=== PATIENT | male | born 1960 | race Caucasian/White ===

== ENCOUNTER 2021-06-05 20:46 | Emergency (ER) | payer MEDICAID, SELFPAY ==
[2021-06-05 21:10] VITALS: BP 129/68; PULSE 71; RESP 18; TEMP 37.2; O2SAT 99; BMI 33.0
--- NOTE | 2021-06-05 21:49 | HMH.EDUTC ---
[facility] [place] Disposition Clinical Impression: Viral syndrome, Encounter for laboratory testing for COVID-19 virus Disposition: Home, Self-Care Condition on Discharge: Good Instructions: DI for COVID-19 (Suspected or Confirmed ), Coronavirus Disease 2019, Preventing the Spread of Coronavirus Discharge Instructions Additional Instructions: *Monitor Temp, Over the counter Motrin or Tylenol as directed/as needed Tylenol every 4 hours and Motrin every 6 hours (as long as your family doctor has told you that you can take it) for fever or pain. and straight to ER if unable to lower temp less than 101.0 after medication given *Warm salt water gargles may help to soothe the throat *Throat Lozenges *Warm fluids like tea with honey may help to soothe the throat *Sleep elevated *Humidifier/Vaporizer Follow up IMMEDIATELY for new or worsening symptoms or no Noticeable improvement over the next 48-72 hours. 911 for difficulty breathing or swallowing You were tested for today for COVID19 your test result should be back in the next 24-48 hours, you may call to the [facility] to see if your test results are back in the next 48 hours [phone] [facility] hours are 9am-9pm You was given a handout with instructions for Self Quarantine and Self isolation for while you wait on test results and what to do if they are positive If you are positive the Health Dept will be contacting you also Make sure to take your Vitamins Vit. C Vit D and Zinc if you can take them Prescriptions: Benzonatate [Tessalon Perle 100mg Cap*] 100 mg PO TID PRN #15 cap PRN Reason: Cough Transmission Status: Pending to [facility] Ondansetron [Zofran 4mg ODT] 4 mg PO TIDP PRN #6 tab PRN Reason: Nausea Transmission Status: Pending to [facility] Referrals: Chyna Figueredo APRN [Primary Care Provider] - As needed Time of Disposition: 22:01 Medical Decision Making - Karan Inquiry Pt receiving controlled substance: No Karan was queried for this patient: No Vital Signs: 06/05/21 21:10 Temperature 99.0 F Temperature Source Oral Pulse Rate [Right Brachial] 71 Respiratory Rate 18 Blood Pressure [Right Arm] 129/68 Blood Pressure Mean [Right Arm] 88 Blood Pressure Source [Right Arm] Automatic Cuff Blood Pressure Position [Right Arm] Sitting 02 Sat by Pulse Oximetry 99 Oxygen Delivery Method Room Air Orders (Tests/Meds): ORDERS Category Date Time Status Covid-19 Nasal PCR ([facility]) Routine Lab 06/05/21 21:30 Received [facility] [place] HPI - General Stated complaint: stomach pain Time Seen by Provider: 06/05/21 21:52 Mode of Arrival: Ambulatory Source of Information: Patient Limitations: No Limitations Description of Symptoms (Recalled from Triage Doc. by RN): COVID TEST D/T EXPOSURE ON MONDAY. C/O FEVER, COUGH, AND NAUSEA X 2 DAYS HEENT Symptoms (Recalled from RN notes): No Resp Symptoms (Recalled from RN notes): No Skin Symptoms (Recalled from RN notes): No MS Symptoms (Recalled from RN notes): No Functional Status (Recalled from RN notes): WNL - History of Present Illness Provider Complaint: Patient states that he was around his sister and she tested positive for COVID on Monday State that he was having upset stomach earlier having low grade fever all day feeling tired with a little cough so he wanted to come in and get checked for COVID - Related Data Previous Rx's Medication Instructions Recorded levoFLOXacin [Levaquin 750mg 750 mg PO DAILY #5 tab 02/28/19 tablet] Benzonatate [Tessalon Perle 100mg 100 mg PO TID PRN #15 cap 06/05/21 Cap*] Ondansetron [Zofran 4mg ODT] 4 mg PO TIDP PRN #6 tab 06/05/21 Allergies Allergy/AdvReac Type Severity Reaction Status Date / Time Penicillins Allergy Verified 02/25/19 09:32 - Worker's Comp Is this a Worker's Comp case?: No [facility] History - Hepatitis A Screen Drug use history?: No High risk sexual behaviors?: No History of sexually transmitted infection?: No Currently emplo
[2021-06-05 21:52] VITALS: BP 129/68; PULSE 71; RESP 18; TEMP 37.2; O2SAT 99
--- NOTE | 2021-06-06 13:59 | PC.NURSE ---
PT NOTIFIED OF POSITIVE COVID TEST RESULTS
== END 2021-06-05 22:07 | disposition home or self-care (01) ==
PROVIDERS: Emergency Provider Nurse Practitioner; PCP Nurse Practitioner Family
DX: B34.9 Viral infection, unspecified (principal); Z20.822 Contact with and (suspected) exposure to COVID-19
CPT/HCPCS: 99202; G0463; U0003

== ENCOUNTER → 2023-07-17 23:40 | Outpatient (CLI) | payer MEDICAID, SELFPAY ==
[2023-07-17 16:58] LABS: Basophils % 0.3 % (0.1-2.0); Eosinophils # 0.2 K/mm3 (0.0-0.4); Eosinophils % 2.3 % (0.1-12.0); Hematocrit 44.2 % (42.0-52.0); Hemoglobin 14.6 g/dL (14.1-18.0); Lymphocytes # 1.4 K/mm3 (0.7-4.5); Lymphocytes % 13.7 % (10-50); Mean Corpuscular Hemoglobin 30.1 pg (27.0-31.2); Mean Corpuscular Volume 91.1 fl (80-94); Mean Platelet Volume 9.8 fl (7.4-10.4); Monocytes # 0.8 K/mm3 (0.1-1.0); Neutrophils # 7.6 K/mm3 (1.8-7.8); Neutrophils % 75.8 % (37.0-80.0); Platelet Count 210 K/mm3 (142-424); Red Blood Count 4.86 M/mm3 (4.60-6.20); Red Cell Distribution Width 13.8 % (11.5-17.5); White Blood Count 10.1 K/mm3 (4.8-10.8)
[2023-07-17 17:10] LABS: Alanine Aminotransferase 23 U/L (12-78); Albumin Level 4.3 g/dl (3.5-5.0); Albumin/Globulin Ratio 1.4 (1.1-1.8); Alkaline Phosphatase 61 U/L (38-126); Anion Gap 12.6 mEq/L (5-15); Aspartate Amino Transferase 27 U/L (17-59); Bilirubin,Total 1.6 mg/dl (0.2-1.3); Blood Urea Nitrogen 14 mg/dl (9-20); Calcium 9.1 mg/dl (8.4-10.2); Carbon Dioxide 31 mmol/L (22.0-30.0); Chloride 100 mmol/L (98-107); Chol/HDL Ratio 5.1 (1-3.5); Cholesterol 149 mg/dl (140-200); Estimated Glomerular Filt Rate 47 ml/min (>60); GFR (African American) 57 ML/MIN (>60); Glucose 122 mg/dl (74-100); HDL Cholesterol 29 mg/dl (40-60); Potassium 4.6 mmoL/L (3.5-5.1); Sodium 139 mmol/L (136-145); Total Protein,Serum 7.3 g/dl (6.3-8.2); Triglycerides 150 mg/dl (30-150); VLDL Cholesterol 30 mg/dL (0-40)
[2023-07-17 17:20] LABS: Direct LDL Cholesterol 84.97 mg/dL (100-129)
[2023-07-17 17:42] LABS: Thyroid Stimulating Hormone 1.84 uIU/mL (0.465-4.68)
== END ==
PROVIDERS: PCP Nurse Practitioner Family; Visit Provider Nurse Practitioner Family
DX: E11.9 Type 2 diabetes mellitus without complications (principal); I10 Essential (primary) hypertension; E78.5 Hyperlipidemia, unspecified; Z79.4 Long term (current) use of insulin; Z87.891 Personal history of nicotine dependence
CPT/HCPCS: 80053; 80061; 83036; 84443; 85025

== ENCOUNTER 2023-07-18 16:58 | Emergency (ER) | payer MEDICAID, SELFPAY ==
[2023-07-18 17:00] VITALS: BP 135/45; PULSE 75; RESP 20; TEMP 36.7; O2SAT 96; BMI 18.8
--- NOTE | 2023-07-18 17:30 | HMH.EDGENADL ---
Discharge Plan Disposition Chief Complaint: Eye Problems Prescriptions Prescriptions: No Action ondansetron 4 mg tablet,disintegrating 4 mg PO Q8H PRN (Reason: nausea and vomiting) Qty: 20 0RF (DME) FreeStyle Lite Strips Strip See Rx Instructions .ROUTE .MEDSUPPLY Qty: 10 Rx Instructions: As directed triamcinolone acetonide 0.1 % lotion 1 applic topical BID Qty: 60 3RF mometasone 0.1 % cream 1 applic topical DAILY Qty: 45 1RF lisinopril 40 mg tablet 40 mg PO DAILY Qty: 60 3RF pravastatin 80 mg tablet See Rx Instructions .ROUTE .COMPLEX Qty: 90 1RF Dose Instruction: TAKE 1 TABLET 1 TIME EACH DAY Rx Instructions: TAKE 1 TABLET 1 TIME EACH DAY (DME) lancets [FreeStyle Lancets] 28 gauge misc See Rx Instructions .ROUTE .COMPLEX Qty: 100 2RF Dose Instruction: USE TO TEST BLOOD SUGAR 2 TIMES EACH DAY Rx Instructions: USE TO TEST BLOOD SUGAR 2 TIMES EACH DAY spironolactone 25 mg tablet See Rx Instructions .ROUTE .COMPLEX Qty: 90 0RF Dose Instruction: TAKE 1 TABLET 1 TIME EACH DAY FOR HYPERTENSION Rx Instructions: TAKE 1 TABLET 1 TIME EACH DAY FOR HYPERTENSION alcohol swabs [BD Alcohol Swabs] Pads, Medicated See Rx Instructions .ROUTE .COMPLEX Qty: 100 2RF Dose Instruction: USE TO CHECK BLOOD SUGAR 2 TIMES EACH DAY Rx Instructions: USE TO CHECK BLOOD SUGAR 2 TIMES EACH DAY (DME) pen needle, diabetic [BD Ultra-Fine Mini Pen Needle] 31 gauge x 3/16 needle See Rx Instructions .ROUTE .COMPLEX Qty: 50 2RF Dose Instruction: USE DIRECTED TO INJECT INSULIN Rx Instructions: USE DIRECTED TO INJECT INSULIN insulin glargine 100 unit/mL (3 mL) insulin pen See Rx Instructions .ROUTE .COMPLEX Qty: 15 2RF Dose Instruction: INJECT 50 UNITS UNDER THE SKIN 2 TIMES EACH DAY FOR DIABETES Rx Instructions: INJECT 50 UNITS UNDER THE SKIN 2 TIMES EACH DAY FOR DIABETES metoprolol tartrate 50 mg tablet See Rx Instructions .ROUTE .COMPLEX Qty: 120 2RF Dose Instruction: TAKE 2 TABLETS 2 TIMES EACH DAY Rx Instructions: TAKE 2 TABLETS 2 TIMES EACH DAY ergocalciferol (vitamin D2) [Vitamin D2] 1,250 mcg (50,000 unit) capsule See Rx Instructions .ROUTE .COMPLEX Qty: 4 5RF Dose Instruction: TAKE 1 CAPSULE 1 TIME EACH WEEK Rx Instructions: TAKE 1 CAPSULE 1 TIME EACH WEEK Referrals Follow up/Referrals: Aixa Delarosa APRN [Primary Care Provider] - See instructions Discharge ED Provider: Curt Panchal General Adult HPI General Chief complaint: Eye Problems Stated complaint: nausea, dizzy, blurred vision Time Seen by Provider: 07/18/23 17:08 History of Present Illness HPI narrative: The patient presents with a chief complaint of numbness and tingling in the arm, which began today. The patient reports having an upset stomach since Monday, but denies any abdominal pain, fever, cough, shortness of breath, vomiting, diarrhea, or constipation. The patient has not experienced these symptoms before and is unsure if they have been in contact with anyone who has been sick with similar symptoms. The patient is right-handed and describes the numbness and tingling as being more prominent in the hand and running up the arm. There is no associated pain in the shoulder, arm, or neck, and no chest pain. The patient has a medical history of hypertension, hyperlipidemia, and diabetes mellitus. They deny any history of abdominal surgeries or pain upon palpation of the abdomen. In addition to the arm and stomach symptoms, the patient reports experiencing blurred vision in both eyes since Monday, coinciding with the onset of their stomach illness. The patient denies any double vision. Related Data Home Medications Medication Instructions Recorded Confirmed blood sugar diagnostic (Freeyle #10 ea 06/10/22 07/17/23 Lite Strips) Previous Rx's Medication Instructions R
--- NOTE | 2023-07-18 17:37 | XR_ITS ---
PROCEDURE INFORMATION: Exam: XR Chest Exam date and time: 07/18/2023 6:01 PM Age: 63 years old Clinical indication: Patient HX: Epigastric pain and left arm tingling; Additional info: Chest pain TECHNIQUE: Imaging protocol: Radiologic exam of the chest. Views: 1 view. COMPARISON: CR CXR2V XR chest 2V 02/28/2019 9:15 AM FINDINGS: Lungs: Normal. Pleural spaces: Normal No pleural effusion. No pneumothorax. Heart/Mediastinum: Normal. No cardiomegaly. Vasculature: Mild atherosclerotic plaque in the aortic arch. Bones/joints: Mild degenerative changes of the bilateral acromioclavicular and glenohumeral joints and thoracic spine. IMPRESSION: No acute findings.
--- NOTE | 2023-07-18 18:15 | CT_ITS ---
PROCEDURE INFORMATION: Exam: CTA Head With Contrast, Arteriography Exam date and time: 07/18/2023 6:37 PM Age: 63 years old Clinical indication: Dizziness and giddiness; Additional info: Transient dizziness, vision issues, lue numbness TECHNIQUE: Imaging protocol: Computed tomographic angiography of the head with contrast. Exam focused on the arteries. 3D rendering (Not supervised by radiologist): MIP and/or 3D reconstructed images were created by the technologist. Radiation optimization: All CT scans at this facility use at least one of these dose optimization techniques: automated exposure control; mA and/or kV adjustment per patient size (includes targeted exams where dose is matched to clinical indication); or iterative reconstruction. Contrast material: ISVOUE 370; Contrast volume: 100 ml; Contrast route: INTRAVENOUS (IV); REPORTING DATA: Count of CT and Cardiac NM exams in prior 12 months: This patient has received 0 known CTs and 0 known cardiac nuclear medicine studies in the 12 months prior to the current study. COMPARISON: No relevant prior studies available. FINDINGS: ANTERIOR CIRCULATION: Right internal carotid artery: There is occlusion of the distal intracranial segment with retrograde filling of the cavernous portion from the [id number]. No aneurysm. Right middle cerebral artery: No occlusion or significant stenosis. No aneurysm. Right anterior cerebral artery: No occlusion or significant stenosis. No aneurysm. Left internal carotid artery: Intracranial segment is patent with no significant stenosis. No aneurysm. Left middle cerebral artery: No occlusion or significant stenosis. No aneurysm. Left anterior cerebral artery: No occlusion or significant stenosis. No aneurysm. POSTERIOR CIRCULATION: Right vertebral artery: No occlusion or significant stenosis. No aneurysm. Left vertebral artery: No occlusion or significant stenosis. No aneurysm. Basilar artery: No occlusion or significant stenosis. No aneurysm. Right posterior cerebral artery: No occlusion or significant stenosis. No aneurysm. Left posterior cerebral artery: No occlusion or significant stenosis. No aneurysm. Brain: Edema secondary to an acute infarct in the right anterior and posterior temporal lobe extending into the inferior parietal lobe. There is regional mass effect with effacement of the sulci. No midline shift. No hemorrhage. Cerebral ventricles: No ventriculomegaly. Bones/joints: Unremarkable. No acute fracture. Soft tissues: Unremarkable. IMPRESSION: 1. 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 There is minimal retrograde flow of contrast from the [id number] into the cavernous portion of the right internal carotid artery. 2. Acute infarct in the right MCA distribution without evidence of focal occlusion of the MCA. THIS REPORT CONTAINS FINDINGS THAT MAY BE CRITICAL TO PATIENT CARE. The findings were verbally communicated via telephone conference with Curt Panchal at 7:16 PM EDT on 07/18/2023. The findings were acknowledged and understood.
--- NOTE | 2023-07-18 18:16 | CT_ITS ---
PROCEDURE INFORMATION: Exam: CTA Neck With Contrast Exam date and time: 07/18/2023 6:37 PM Age: 63 years old Clinical indication: Dizziness and giddiness; Additional info: Transient dizziness, vision issues, lue numbness TECHNIQUE: Imaging protocol: Computed tomographic angiography of the neck with contrast. 3D rendering (Not supervised by radiologist): MIP and/or 3D reconstructed images were created by the technologist. Radiation optimization: All CT scans at this facility use at least one of these dose optimization techniques: automated exposure control; mA and/or kV adjustment per patient size (includes targeted exams where dose is matched to clinical indication); or iterative reconstruction. Contrast material: ISOVUE 370; Contrast volume: 100 ml; Contrast route: INTRAVENOUS (IV); REPORTING DATA: Count of CT and Cardiac NM exams in prior 12 months: This patient has received 0 known CTs and 0 known cardiac nuclear medicine studies in the 12 months prior to the current study. COMPARISON: CR XR CHEST PORTABLE 07/18/2023 6:01 PM FINDINGS: Right common carotid artery: No stenosis. No dissection or occlusion. Right internal carotid artery: Large focus of densely calcified plaque in the carotid bulb is causing near occlusion. A string of contrast is seen beyond the plaque with eventual complete occlusion of the artery 5.0 cm distal to the plaque with the occlusion extending to the intracranial portion. Minimal retrograde filling of the cavernous carotid is present. Right external carotid artery: No occlusion or stenosis of the origin. Left common carotid artery: No stenosis. No dissection or occlusion. Left internal carotid artery: No stenosis of the extracranial segment. No dissection or occlusion. Left external carotid artery: No occlusion or stenosis of the origin. Right vertebral artery: No stenosis. No dissection or occlusion. Left vertebral artery: No stenosis. No dissection or occlusion. Congenitally small left vertebral artery originates directly from the aortic arch and terminates as a posteroinferior cerebellar artery. Soft tissues: Normal. No significant soft tissue swelling. Bones/joints: No acute fracture. Moderate degenerative changes of the cervical spine. 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 IMPRESSION: Large dense calcified plaque in the right carotid bulb is causing severe stenosis. 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 This occlusion extends to the intracranial portion. There is mild retrograde filling of the cavernous right internal carotid artery from the [id number]. THIS REPORT CONTAINS FINDINGS THAT MAY BE CRITICAL TO PATIENT CARE. The findings were verbally communicated via telephone conference with Curt Panchal at 7:10 PM EDT on 07/18/2023. The findings were acknowledged and understood. REFERENCES: NASCET CRITERIA. The degree of stenosis in the cervical segment of the internal carotid artery is based on NASCET criteria. Normal is no stenosis. Mild is less than 50% stenosis. Moderate is 50-69% stenosis. Severe is 70% to 99% stenosis. Total occlusion is no detectable patent lumen.
--- NOTE | 2023-07-18 18:16 | CT_ITS ---
PROCEDURE INFORMATION: Exam: CT Head Without Contrast Exam date and time: 07/18/2023 6:37 PM Age: 63 years old Clinical indication: Dizziness; Additional info: Transient dizziness, vision issues, lue numbness TECHNIQUE: Imaging protocol: Computed tomography of the head without contrast. Radiation optimization: All CT scans at this facility use at least one of these dose optimization techniques: automated exposure control; mA and/or kV adjustment per patient size (includes targeted exams where dose is matched to clinical indication); or iterative reconstruction. REPORTING DATA: Count of CT and Cardiac NM exams in prior 12 months: This patient has received 0 known CTs and 0 known cardiac nuclear medicine studies in the 12 months prior to the current study. COMPARISON: No relevant prior studies available. FINDINGS: Brain: Anterior and posterior right temporal lobe edema extending into the inferior parietal lobe with mild regional mass effect. No midline shift. No hemorrhage. Cerebral ventricles: No ventriculomegaly. Paranasal sinuses: Visualized sinuses are unremarkable. No fluid levels. Mastoid air cells: Visualized mastoid air cells are well aerated. Bones/joints: Unremarkable. No acute fracture. Soft tissues: Unremarkable. IMPRESSION: Acute right MCA distribution infarct involving the anterior and posterior right temporal lobe and inferior right parietal lobe. No hemorrhage. No midline shift. Mild regional mass effect with effacement of the sulci. ASPECTS score 7. THIS REPORT CONTAINS FINDINGS THAT MAY BE CRITICAL TO PATIENT CARE. The findings were verbally communicated via telephone conference with Curt Panchal at 7:01 PM EDT on 07/18/2023. The findings were acknowledged and understood.
[2023-07-18 18:41] LABS: Basophils % 0.2 % (0.1-2.0); Eosinophils # 0.2 K/mm3 (0.0-0.4); Eosinophils % 1.8 % (0.1-12.0); Hematocrit 46.1 % (42.0-52.0); Hemoglobin 14.9 g/dL (14.1-18.0); Lymphocytes # 1.6 K/mm3 (0.7-4.5); Lymphocytes % 16.9 % (10-50); Mean Corpuscular HGB Conc 32.4 g/dL (31.8-35.4); Mean Corpuscular Hemoglobin 29.9 pg (27.0-31.2); Mean Corpuscular Volume 92.2 fl (80-94); Mean Platelet Volume 9.2 fl (7.4-10.4); Monocytes # 0.8 K/mm3 (0.1-1.0); Monocytes % 8.1 % (1.7-9.3); Platelet Count 202 K/mm3 (142-424); Red Cell Distribution Width 13.8 % (11.5-17.5); White Blood Count 9.5 K/mm3 (4.8-10.8)
[2023-07-18 18:49] LABS: Alanine Aminotransferase 26 U/L (12-78); Albumin Level 4.6 g/dl (3.5-5.0); Albumin/Globulin Ratio 1.3 (1.1-1.8); Alkaline Phosphatase 63 U/L (38-126); Anion Gap 12.3 mEq/L (5-15); Aspartate Amino Transferase 29 U/L (17-59); Bilirubin,Total 1.7 mg/dl (0.2-1.3); Blood Urea Nitrogen 16 mg/dl (9-20); Calcium 9.3 mg/dl (8.4-10.2); Carbon Dioxide 31 mmol/L (22.0-30.0); Chloride 99 mmol/L (98-107); Creatinine Clearance Estimated 37 mL/min (50-200); Estimated Glomerular Filt Rate 44 ml/min (>60); GFR (African American) 53 ML/MIN (>60); Globulin 3.6 g/dL (1.3-3.2); Glucose 149 mg/dl (74-100); Lipase 489 U/L (23-300); Magnesium 1.9 mg/dl (1.6-2.3); Phosphorous 3.4 mg/dl (2.5-4.5); Potassium 4.3 mmoL/L (3.5-5.1); Sodium 138 mmol/L (136-145); Total Protein,Serum 8.2 g/dl (6.3-8.2)
--- NOTE | 2023-07-18 18:59 | ECG_ITS ---
APPROVED REPORT Exam: Resting ECG HR:74 bpm ECG Measurements Heart Rate 74 AXES [place] 144 P 52 QRSd 93 QRS 69 QT 368 T 16 QTc 395 Conclusion SINUS RHYTHM WITH FREQUENT VENTRICULAR PREMATURE COMPLEXES ABNORMAL RHYTHM ECG UNCONFIRMED REPORT Electronically signed by : Martin Boyd MD 07/19/2023 08:48:11
[2023-07-18 19:02] LABS: Troponin I < 0.01 ng/ml (0.00-0.034)
--- NOTE | 2023-07-18 19:14 | PC.NURSE ---
[facility]ed [facility] d[facility]t [facility]
--- NOTE | 2023-07-18 19:25 | PC.NURSE ---
Dr. Panchal is s/w Neuro
--- NOTE | 2023-07-18 19:26 | PC.NURSE ---
Radiology is preparing disc and power-shared the images.
[2023-07-18 19:34] LABS: Activated Partial Thrombo Time 27.3 seconds (22.8-30.6); INR 1.05 (0.9-1.1); Prothrombin Time 11.3 seconds (10.1-12.5)
--- NOTE | 2023-07-18 20:51 | PC.NURSE ---
Called for possible placement for pt for Post stroke follow up. Call center states they will speak to their hospitalist and call us back. CR
[2023-07-18 21:16] LABS: Troponin I < 0.01 ng/ml (0.00-0.034)
--- NOTE | 2023-07-18 21:17 | PC.NURSE ---
Facesheet faxed to [facility] stroke navigator
[2023-07-18 21:40] VITALS: BP 110/62; PULSE 83; RESP 16; TEMP 36.6; O2SAT 97
--- NOTE | 2023-07-18 22:00 | PC.NURSE ---
Called [facility], spoke to Alexa. Advised transfer of pt to [facility] via EMS. States they will be up here shortly. RN advised. CR
[2023-07-18 22:09] VITALS: BP 116/62; PULSE 84; RESP 18; TEMP 36.6; O2SAT 98
[2023-07-18 22:39] LABS: Troponin I < 0.01 ng/ml (0.00-0.034)
== END 2023-07-18 22:15 ==
PROVIDERS: Emergency Provider Emergency Medicine; PCP Nurse Practitioner Family
DX: R20.0 Anesthesia of skin (principal); R20.2 Paresthesia of skin; H53.8 Other visual disturbances; I10 Essential (primary) hypertension; E78.5 Hyperlipidemia, unspecified; E11.9 Type 2 diabetes mellitus without complications; Z87.891 Personal history of nicotine dependence
CPT/HCPCS: 36415; 70450; 70496; 70498; 71045; 80053; 83690; 83735; 84100; 84484; 85025; 85610; 85730; 93005; 96361; 96374; 99285; J2405; Q9967

== ENCOUNTER 2023-10-31 17:52 | Outpatient (CLI) | payer MEDICAID, SELFPAY ==
[2023-10-31 17:16] LABS: Hemoglobin A1C 9.1 % (4.0-6.0)
== END 2023-10-31 23:59 ==
LOC: LAB.DROPOF 17:53
PROVIDERS: PCP Family Medicine; Visit Provider Family Medicine
DX: E11.9 Type 2 diabetes mellitus without complications (principal); Z79.4 Long term (current) use of insulin
CPT/HCPCS: 83036

== ENCOUNTER 2024-02-01 10:01 | Outpatient (CLI) | payer MEDICAID, SELFPAY ==
[2024-02-01 18:07] LABS: Hemoglobin A1C 10.1 % (4.0-6.0)
== END 2024-02-01 23:59 ==
LOC: LAB.DROPOF 02-02 10:02
PROVIDERS: PCP Family Medicine; Visit Provider Family Medicine
DX: E11.9 Type 2 diabetes mellitus without complications (principal); Z79.4 Long term (current) use of insulin
CPT/HCPCS: 83036

== ENCOUNTER 2024-05-29 10:21 | Outpatient (CLI) | payer MEDICAID, SELFPAY ==
[2024-05-29 16:31] LABS: Basophils % 0.5 % (0.1-2.0); Eosinophils # 0.2 K/mm3 (0.0-0.4); Eosinophils % 2.6 % (0.1-12.0); Hematocrit 44.7 % (42.0-52.0); Lymphocytes # 1.3 K/mm3 (0.7-4.5); Lymphocytes % 17.4 % (10-50); Mean Corpuscular HGB Conc 31.4 g/dL (31.8-35.4); Mean Corpuscular Hemoglobin 30.3 pg (27.0-31.2); Mean Corpuscular Volume 96.8 fl (80-94); Mean Platelet Volume 9.7 fl (7.4-10.4); Monocytes # 0.6 K/mm3 (0.1-1.0); Monocytes % 7.7 % (1.7-9.3); Neutrophils # 5.2 K/mm3 (1.8-7.8); Neutrophils % 71.9 % (37.0-80.0); Platelet Count 192 K/mm3 (142-424); Red Blood Count 4.62 M/mm3 (4.60-6.20); White Blood Count 7.3 K/mm3 (4.8-10.8)
[2024-05-29 17:01] LABS: Alanine Aminotransferase 28 U/L (12-78); Albumin/Globulin Ratio 1.4 (1.1-1.8); Alkaline Phosphatase 78 U/L (38-126); Anion Gap 11.5 mEq/L (5-15); Aspartate Amino Transferase 23 U/L (17-59); Bilirubin,Total 1.2 mg/dl (0.2-1.3); Blood Urea Nitrogen 17 mg/dl (9-20); Calcium 9.2 mg/dl (8.4-10.2); Carbon Dioxide 26 mmol/L (22.0-30.0); Chloride 106 mmol/L (98-107); Chol/HDL Ratio 4.1 (1-3.5); Cholesterol 103 mg/dl (140-200); Estimated Glomerular Filt Rate 61 ml/min (>60); GFR (African American) 74 ML/MIN (>60); Globulin 2.9 g/dL (1.3-3.2); Glucose 116 mg/dl (74-100); HDL Cholesterol 25 mg/dl (40-60); Potassium 4.5 mmoL/L (3.5-5.1); Sodium 139 mmol/L (136-145); Total Protein,Serum 6.9 g/dl (6.3-8.2); Triglycerides 107 mg/dl (30-150); VLDL Cholesterol 21 mg/dL (0-40)
[2024-05-29 17:11] LABS: Direct LDL Cholesterol 50.38 mg/dL (100-129)
[2024-05-29 17:21] LABS: 25-OH Vitamin D, Total 55.2 ng/mL (30-100)
[2024-05-29 17:33] LABS: Prostate Specific Ag Screen 0.9 ng/ml (0.0-4.0)
[2024-05-29 19:18] LABS: Hemoglobin A1C 9.3 % (4.0-6.0)
[2024-05-29 21:33] LABS: Creatinine,Urine Random 96 mg/dL (Not Estab.)
[2024-05-29 21:37] LABS: Microalbumin/Creatinine Ratio 33.1
== END 2024-05-29 23:59 | disposition home or self-care (01) ==
LOC: LAB.DROPOF 05-30 09:42
PROVIDERS: PCP Family Medicine; Visit Provider Family Medicine
DX: Z12.5 Encounter for screening for malignant neoplasm of prostate (principal); E55.9 Vitamin D deficiency, unspecified; E11.9 Type 2 diabetes mellitus without complications; Z79.4 Long term (current) use of insulin
CPT/HCPCS: 80050; 80053; 80061; 82043; 82306; 82570; 83036; 84443; 85025; G0103

== ENCOUNTER 2024-11-17 14:17 | Emergency (ER) | payer MEDICAID, SELFPAY ==
[2024-11-17 15:35] VITALS: BP 131/87; PULSE 98; RESP 17; TEMP 37.1; O2SAT 96; BMI 37.7
--- NOTE | 2024-11-17 15:47 | EXP.UTC ---
Discharge Plan Disposition Patient Disposition: Home, Self-Care Condition: Good Prescriptions Prescriptions: New benzonatate 100 mg capsule 100 mg PO TID PRN (Reason: cough) Qty: 30 0RF albuterol sulfate 2.5 mg /3 mL (0.083 %) solution for nebulization 2.5 mg inhalation QID PRN (Reason: shortness of breath or wheezing) Qty: 90 0RF No Action triamcinolone acetonide 0.1 % lotion 1 applic topical BID Qty: 60 3RF (DME) pen needle, diabetic [BD Ultra-Fine Mini Pen Needle] 31 gauge x 3/16 needle See Rx Instructions .ROUTE .COMPLEX Qty: 100 2RF Dose Instruction: USE DIRECTED TO INJECT INSULIN Rx Instructions: USE DIRECTED TO INJECT INSULIN ergocalciferol (vitamin D2) [Vitamin D2] 1,250 mcg (50,000 unit) capsule See Rx Instructions .ROUTE .COMPLEX Qty: 4 5RF Dose Instruction: TAKE 1 CAPSULE 1 TIME EACH WEEK Rx Instructions: TAKE 1 CAPSULE 1 TIME EACH WEEK (DME) lancets [FreeStyle Lancets] 28 gauge misc See Rx Instructions .ROUTE .COMPLEX Qty: 100 2RF Dose Instruction: USE TO TEST BLOOD SUGAR 2 TIMES EACH DAY Rx Instructions: USE TO TEST BLOOD SUGAR 2 TIMES EACH DAY pioglitazone 15 mg tablet 15 mg PO DAILY 30 Days Qty: 30 2RF spironolactone 25 mg tablet See Rx Instructions .ROUTE .COMPLEX Qty: 90 0RF Dose Instruction: TAKE 1 TABLET 1 TIME EACH DAY FOR HYPERTENSION Rx Instructions: TAKE 1 TABLET 1 TIME EACH DAY FOR HYPERTENSION lisinopril 40 mg tablet See Rx Instructions .ROUTE .COMPLEX Qty: 90 0RF Dose Instruction: TAKE 1 TABLET 1 TIME EACH DAY FOR HIGH BLOOD PRESSURE Rx Instructions: TAKE 1 TABLET 1 TIME EACH DAY FOR HIGH BLOOD PRESSURE alcohol swabs [BD Alcohol Swabs] Pads, Medicated See Rx Instructions .ROUTE .COMPLEX Qty: 100 2RF Dose Instruction: USE TO CHECK BLOOD SUGAR 2 TIMES EACH DAY Rx Instructions: USE TO CHECK BLOOD SUGAR 2 TIMES EACH DAY cetirizine-pseudoephedrine [Zyrtec-D] 5-120 mg tablet extended release 12 hr 1 tab PO Q12H Qty: 60 0RF insulin glargine U-300 conc [Toujeo Max U-300 SoloStar] 300 unit/mL (3 mL) insulin pen 110 unit SQ DAILY 30 Days Qty: 11.001 2RF aspirin 81 mg tablet,delayed release (DR/EC) 81 mg PO DAILY 30 Days Qty: 30 2RF atorvastatin 80 mg tablet 80 mg PO HS 30 Days Qty: 30 2RF metoprolol tartrate 50 mg tablet See Rx Instructions .ROUTE .COMPLEX Qty: 120 2RF Dose Instruction: TAKE 2 TABLETS 2 TIMES EACH DAY Rx Instructions: TAKE 2 TABLETS 2 TIMES EACH DAY clopidogrel 75 mg tablet 75 mg PO DAILY 30 Days Qty: 30 2RF (DME) FreeStyle Lite Strips Strip See Rx Instructions .ROUTE .COMPLEX Qty: 100 6RF Dose Instruction: USE TO TEST BLOOD SUGAR 2 TIMES EACH DAY Rx Instructions: USE TO TEST BLOOD SUGAR 2 TIMES EACH DAY Referrals Follow up/Referrals: Jhon Jasso MD [Primary Care Provider] - See instructions Activity Restrictions/Add. Instructions Additional Instructions/Restrictions: Too late to start Tamiflu. Most effective when started within 48 hours of symptoms onset Lots of rest Increase Fluids water, Gatorade, powerade, pedialyte,if infant/toddler/child Alternate Tylenol and / or ibuprofen as discussed for fever, aches, chills Follow up IMMEDIATELY with your family doctor for new or worsening Symptoms OR no noticeable improvement over the next 48-72 hours, 911 for difficulty or breathing You or your child area contagious until no fever, aches, chills for 24 hours with medication for symptoms Help Prevent the spread of influenza: ?Wash your hands often. Use soap and water. Wash your hands after you use the bathroom, change a child's diapers, or sneeze. Wash your hands before you prepare or eat food. Use gel hand cleanser that has 60% alcohol, when soap and water are not available. Do not touch your eyes, nose, or mouth unless you have washed your hands first. Cover your mouth when you sneeze or cough. Cough into a tissue or the bend of your arm. If you use a tissue, throw it away immediately and wash your hands. Clean shared items with a germ-killing dry cleaner helper. Clean table surfaces, doorknobs, and light switches. Do not share towels, silverware, and dishes with people who are sick. Wash bed sheets, towels, silverware, and dishes with soap and water. Wear a mask over your mouth and nose if you are sick. The face mask may help protect others from becoming infected with the flu. Wear the mask when in common areas of your home or if you seek care with a healthcare provider. Stay away from others if you are sick. Stay at home until 24 hours after your fever and symptoms are gone. ? Clinical Impressions Clinical Impression: Influenza Instructions Patient Instructions: DI for Influenza -- Adult, Influenza Print Language Print Language: Kazakh Discharge ED Provider: Claudia Jarrell [facility] [place] General Stated complaint: cough, fever, body aches Mode of Arrival: Ambulatory Source of Information: Patient Limitations: No Limitations Time Seen by Provider: 11/17/24 15:47 Description of Symptoms (Recalled from Triage Doc. by RN): PATIENT C/O COUGH, FEVER AND BODY ACHES, RECENTLY EXPOSED TO FLU HEENT Symptoms (Recalled from RN notes): No Resp Symptoms (Recalled from RN notes): Yes Skin Symptoms (Recalled from RN notes): No MS Symptoms (Recalled from RN notes): No Functional Status (Recalled from RN notes): WNL History of Present Illness Provider Complaint: Patient states that he was exposed to the flu States that since then he has been having body aches and chills, States also he is out of his albuterol medication for his nebulizer and wanted to see if he could get some until he sees his PCP Related Data Previous Rx's ?Medication ?Instructions ?Recorded triamcinolone acetonide 0.1 % 1 applic topical BID apply to arms 10/31/22 lotion and legs #60 mL pen needle, diabetic 31 gauge x #100 ea 03/04/2412/29 (BD Ultra-Fine Mini Pen Needle) ergocalciferol (vitamin D2) 1,250 See Rx Instructions .Route 06/28/24 mcg (50,000 unit) capsule (Vitamin .COMPLEX #4 caps D2) lancets 28 gauge (FreeStyle #100 ea 07/02/24 Lancets) alcohol swabs (BD Alcohol Swabs) See Rx Instructions .Route 08/26/24 .COMPLEX #100 pad cetirizine 5 mg-pseudoephedrine ER 1 tab PO Q12H #60 tabs 08/26/24 120 mg tablet,extended release,12hr (Zyrtec-D) lisinopril 40 mg tablet See Rx Instructions .Route 08/26/24 .COMPLEX #90 tabs pioglitazone 15 mg tablet 15 mg PO DAILY 30 days #30 tabs 08/26/24 spironolactone 25 mg tablet See Rx Instructions .Route 08/26/24 .COMPLEX #90 tabs insulin glargine U-300 conc 300 110 unit (0.3667 mL) SQ DAILY 30 09/23/24 unit/mL (3 mL) subcutaneous pen days #11.001 mL (Toujeo Max U-300 SoloStar) aspirin 81 mg tablet,delayed 81 mg PO DAILY 30 days #30 tabs 09/30/24 release atorvastatin 80 mg tablet 80 mg PO HS 30 days #30 tabs 09/30/24 clopidogrel 75 mg tablet 75 mg PO DAILY 30 days #30 tabs 09/30/24 metoprolol tartrate 50 mg tablet See Rx Instructions .Route 09/30/24 .COMPLEX #120 tabs blood sugar diagnostic (FreeStyle #100 strips 10/11/24 Lite Strips) albuterol sulfate 2.5 mg/3 mL 2.5 mg (3 mL) inhalation QID PRN 11/17/24 (0.083 %) solution for nebulization shortness of breath or wheezing #90 mL benzonatate 100 mg capsule 100 mg PO TID PRN cough #30 caps 11/17/24 Allergies Allergy/AdvReac Type Severity Reaction Status Date / Time Penicillins Allergy Verified 09/20/24 14:57 Worker's Comp Is this a Worker's Comp case?: No [facility] Disclaimer: The information contained in this section may have been updated after the patient was seen, as this information can be updated by other users. Medical History Hyperlipidemia Hypertension Diabetes mellitus Surgical History Hx of cataract surgery Family History Grandmother Diabetes Father Heart attack Social History Smoking Status: Former smoker years smoked: 6 smoking status stop date: 10/16/1996 alcohol intake: never substance use type: denies use current occupational status: other details: farms Travel in the last 8 weeks: None household members: none housing: apartment lives independently: Yes Have you lived/traveled outside US in past 30 days?: No Contact w/someone who lives/traveled outside US past 30 days?: No Exposure to someone with infectious disease in past 14 days?: No Do you have a fever (greater than 100.4 F or 38 C)?: No Have you tested positive for COVID-19: No Exposed to someone with COVID-19 in past 14 days?: No Do you have a sore throat?: No Do you have a cough?: No Do you have any weakness?: No Do you have any diarrhea?: No Are you experiencing any unusual bleeding?: No Do you have any muscle aches/pain?: No Do you have any abdominal pain?: No Are you experiencing loss of taste or smell?: No ROS Obtained: Yes All systems reviewed & no additional complaints except as documented and Yes Systems reviewed as appropriate & no additional complaints except as documented Constitutional Constitutional: Reports system reviewed and no additional complaints, except as documented, Reports as per HPI, Reports body ache, Reports chills, Reports fever(s) and Reports headache(s) ENT Ears, Nose, Mouth, and Throat: Reports system reviewed and no additional complaints, except as documented, Reports as per HPI and Reports headache(s) Cardiovascular Cardiovascular: Reports system reviewed and no additional complaints, except as documented and Reports as per HPI Respiratory Respiratory: Reports system reviewed and no additional complaints, except as documented and Reports as per HPI Gastrointestinal Gastrointestingal: Reports system reviewed and no additional complaints, except as documented and as per HPI Neurologic Neurologic: Reports headache(s) Physical Exam General General appearance: alert and in no apparent distress ENT ENT exam: Present normal exam, normal oropharynx, mucous membranes moist and TM's normal bilaterally Respiratory Respiratory exam: Present normal lung sounds bilaterally; Absent respiratory distress or wheezes Cardiovascular Cardiovascular exam: Present regular rate, normal rhythm and normal heart sounds Abdominal Exam Abdominal exam: Present soft and normal bowel sounds; Absent distention or tenderness Neurological Exam Neurological exam: Present alert, oriented X3 and normal gait Medical Decision Making Medical Records Screening: Per USPSTF and CDC recommendations, given the prevalence of disease in our region, it is our hospital?s policy to screen for HIV and viral Hepatitis for all patients aged 18 and over and those with ongoing risk factors. Karan Inquiry Pt receiving controlled substance: No Karan was queried for this patient: No Vital Signs: 11/17/24 15:35 Temperature 98.8 F Temperature Source Oral Pulse Rate [Left Brachial] 98 H Respiratory Rate 17 Blood Pressure [Left Arm] 131/87 Blood Pressure Mean [Left Arm] 101 Blood Pressure Source [Left Arm] Automatic Cuff Blood Pressure Position [Left Arm] Sitting 02 Sat by Pulse Oximetry 96 Oxygen Delivery Method Room Air Lab Data Lab results reviewed: Yes I reviewed the patient's lab results.
[2024-11-17 15:59] VITALS: BP 137/70; PULSE 84; RESP 19; TEMP 37.2; O2SAT 97
[2024-11-17 15:59] LABS: UTC Influenza A Antigen Positive (Negative)
[2024-11-17 16:00] LABS: UTC Influenza B Antigen Negative (Negative)
== END 2024-11-17 16:04 | disposition home or self-care (01) ==
PROVIDERS: Emergency Provider Nurse Practitioner; PCP Family Medicine
DX: J10.1 Influenza due to other identified influenza virus with other respiratory manifestations (principal)
CPT/HCPCS: 87804; 99213; G0381

== ENCOUNTER 2024-12-20 11:04 | Outpatient (CLI) | payer MEDICAID, SELFPAY ==
[2024-12-20 18:11] LABS: Microalbumin/Creatinine Ratio 50.6
[2024-12-20 18:12] LABS: Creatinine,Urine Random 160 mg/dL (Not Estab.)
== END 2024-12-20 23:59 | disposition home or self-care (01) ==
LOC: LAB.DROPOF 12-21 11:05
PROVIDERS: PCP Family Medicine; Visit Provider Family Medicine
DX: E11.9 Type 2 diabetes mellitus without complications (principal)
CPT/HCPCS: 82043; 82570

== ENCOUNTER 2025-01-04 07:36 | Emergency (ER) | payer MEDICAID, SELFPAY ==
[2025-01-04 07:40] VITALS: BP 142/64; PULSE 67; RESP 14; TEMP 36.7; O2SAT 97; BMI 34.0
--- NOTE | 2025-01-04 07:45 | PC.NURSE ---
dr rosario at bedside
--- NOTE | 2025-01-04 07:45 | ECG_ITS ---
APPROVED REPORT Exam: Resting ECG HR:66 bpm ECG Measurements Heart Rate 66 AXES SD 138 P 61 QRSd 91 QRS 66 QT 381 T 41 QTc 394 Conclusion SINUS RHYTHM MODERATE ST DEPRESSION [0.05+ mV ST DEPRESSION] ABNORMAL ECG UNCONFIRMED REPORT Electronically signed by : Jarett Kaur, 01/04/2025 13:44:51
[2025-01-04 07:58] VITALS: BP 140/64; PULSE 65; RESP 17; TEMP 36.7; O2SAT 97
--- NOTE | 2025-01-04 07:58 | HMH.EDGENADL ---
Discharge Plan Disposition Patient Disposition: Home, Self-Care Prescriptions Prescriptions: No Action triamcinolone acetonide 0.1 % lotion 1 applic topical BID Qty: 60 3RF (DME) pen needle, diabetic [BD Ultra-Fine Mini Pen Needle] 31 gauge x 3/16 needle See Rx Instructions .ROUTE .COMPLEX Qty: 100 2RF Dose Instruction: USE DIRECTED TO INJECT INSULIN Rx Instructions: USE DIRECTED TO INJECT INSULIN alcohol swabs [BD Alcohol Swabs] Pads, Medicated See Rx Instructions .ROUTE .COMPLEX Qty: 100 2RF Dose Instruction: USE TO CHECK BLOOD SUGAR 2 TIMES EACH DAY Rx Instructions: USE TO CHECK BLOOD SUGAR 2 TIMES EACH DAY (DME) FreeStyle Lite Strips Strip See Rx Instructions .ROUTE .COMPLEX Qty: 100 6RF Dose Instruction: USE TO TEST BLOOD SUGAR 2 TIMES EACH DAY Rx Instructions: USE TO TEST BLOOD SUGAR 2 TIMES EACH DAY spironolactone 25 mg tablet See Rx Instructions .ROUTE .COMPLEX Qty: 90 2RF Dose Instruction: TAKE 1 TABLET 1 TIME EACH DAY FOR HYPERTENSION Rx Instructions: TAKE 1 TABLET 1 TIME EACH DAY FOR HYPERTENSION lisinopril 40 mg tablet See Rx Instructions .ROUTE .COMPLEX Qty: 90 2RF Dose Instruction: TAKE 1 TABLET 1 TIME EACH DAY FOR HIGH BLOOD PRESSURE Rx Instructions: TAKE 1 TABLET 1 TIME EACH DAY FOR HIGH BLOOD PRESSURE cetirizine-pseudoephedrine [Zyrtec-D] 5-120 mg tablet extended release 12 hr 1 tab PO Q12H Qty: 60 2RF pioglitazone 15 mg tablet 15 mg PO DAILY 30 Days Qty: 30 2RF (DME) lancets [FreeStyle Lancets] 28 gauge misc See Rx Instructions .ROUTE .COMPLEX Qty: 100 2RF Dose Instruction: USE TO TEST BLOOD SUGAR 2 TIMES EACH DAY Rx Instructions: USE TO TEST BLOOD SUGAR 2 TIMES EACH DAY insulin glargine U-300 conc [Toujeo Max U-300 SoloStar] 300 unit/mL (3 mL) insulin pen 110 unit SQ DAILY 30 Days Qty: 11.001 2RF clopidogrel 75 mg tablet 75 mg PO DAILY 30 Days Qty: 30 2RF atorvastatin 80 mg tablet 80 mg PO HS 30 Days Qty: 30 2RF aspirin 81 mg tablet,delayed release (DR/EC) 81 mg PO DAILY 30 Days Qty: 30 2RF metoprolol tartrate 50 mg tablet See Rx Instructions .ROUTE .COMPLEX Qty: 120 2RF Dose Instruction: TAKE 2 TABLETS 2 TIMES EACH DAY Rx Instructions: TAKE 2 TABLETS 2 TIMES EACH DAY ergocalciferol (vitamin D2) [Vitamin D2] 1,250 mcg (50,000 unit) capsule See Rx Instructions .ROUTE .COMPLEX Qty: 4 5RF Dose Instruction: TAKE 1 CAPSULE 1 TIME EACH WEEK Rx Instructions: TAKE 1 CAPSULE 1 TIME EACH WEEK albuterol sulfate 2.5 mg /3 mL (0.083 %) solution for nebulization 2.5 mg inhalation QID PRN (Reason: shortness of breath or wheezing) Qty: 90 0RF Referrals Follow up/Referrals: Jhon Jasso MD [Primary Care Provider] - See instructions Activity Restrictions/Add. Instructions Additional Instructions/Restrictions: At the moment you are completely asymptomatic and your neurologic exam is objectively normal. We had an extensive discussion regarding the utility of imaging of your brain and blood test etc. The utility of those tests are exceedingly low with your current presentation and with shared decision making we opted to not proceed with emergent testing at the moment. If you have any recurrence or persistence of your symptoms I recommend you return to the emergency department. Otherwise follow-up with primary care doctor and your neurologist as previously instructed. Clinical Impressions Clinical Impression: Dizziness Instructions Patient Instructions: DI for Dizziness-Nonvertigo, DI for Tinnitus Print Language Print Language: [place]se Discharge ED Provider: Mere Kaur General Adult HPI General Chief complaint: Dizziness Stated complaint: light headed, ears ringing Time Seen by Provider: 01/04/25 07:39 Mode of Arrival: Ambulatory Source of Information: Patient Description of Symptoms (Recalled from ER Triage Doc. by RN): pt presents to the er for dizziness, ringing in the ears, feeling off in his head, and tingling in his r knee that is intermittent and states it started around 1am, denies any symptoms currently, had a stroke in june 2023, no deficits from that stroke, states it was a gradual onset when symptoms presented, denies fever, cough, or chills recently History of Present Illness HPI narrative: Patient is a 64-year-old male presenting today with multiple complaints. At the moment he is completely asymptomatic. States that earlier this morning while he was awake around 1 AM he started feeling dizzy headed. Unclear as to how long this lasted. He had no vertiginous symptoms changes in coordination vision weakness or numbness in his extremities. 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 No significant residual deficits from that stroke other than some word finding difficulty or slowed speech. It was for this reason the fact that he had a stroke in the past that he wanted to make sure nothing was going on today. He is currently completely without any symptoms. He had no ongoing or measurable neurologic deficits even while he was lightheaded. He did state that he had some ringing in his ears which seem to bother him more than other symptoms. No ringing in his ears currently. He also claimed to have some tingling in his right knee. But again no symptoms at the moment. No nausea and vomiting. No changes in medication. No recent illnesses. He states I just wanted to get checked out. Related Data Previous Rx's ?Medication ?Instructions ?Recorded triamcinolone acetonide 0.1 % 1 applic topical BID apply to arms 10/31/22 lotion and legs #60 mL pen needle, diabetic 31 gauge x #100 ea 03/04/2412/29 (BD Ultra-Fine Mini Pen Needle) alcohol swabs (BD Alcohol Swabs) See Rx Instructions .Route 08/26/24 .COMPLEX #100 pad blood sugar diagnostic (FreeStyle #100 strips 10/11/24 Lite Strips) albuterol sulfate 2.5 mg/3 mL 2.5 mg (3 mL) inhalation QID PRN 11/17/24 (0.083 %) solution for nebulization shortness of breath or wheezing #90 mL cetirizine 5 mg-pseudoephedrine ER 1 tab PO Q12H #60 tabs 11/28/24 120 mg tablet,extended release,12hr (Zyrtec-D) lancets 28 gauge (FreeStyle #100 ea 11/28/24 Lancets) lisinopril 40 mg tablet See Rx Instructions .Route 11/28/24 .COMPLEX #90 tabs pioglitazone 15 mg tablet 15 mg PO DAILY 30 days #30 tabs 11/28/24 spironolactone 25 mg tablet See Rx Instructions .Route 11/28/24 .COMPLEX #90 tabs insulin glargine U-300 conc 300 110 unit (0.3667 mL) SQ DAILY 30 12/04/24 unit/mL (3 mL) subcutaneous pen days #11.001 mL (Toujeo Max U-300 SoloStar) aspirin 81 mg tablet,delayed 81 mg PO DAILY 30 days #30 tabs 12/25/24 release atorvastatin 80 mg tablet 80 mg PO HS 30 days #30 tabs 12/25/24 clopidogrel 75 mg tablet 75 mg PO DAILY 30 days #30 tabs 12/25/24 ergocalciferol (vitamin D2) 1,250 See Rx Instructions .Route 12/25/24 mcg (50,000 unit) capsule (Vitamin .COMPLEX #4 caps D2) metoprolol tartrate 50 mg tablet See Rx Instructions .Route 12/25/24 .COMPLEX #120 tabs Allergies Allergy/AdvReac Type Severity Reaction Status Date / Time Penicillins Allergy unkn Verified 01/04/25 07:55 [facility] Disclaimer: The information contained in this section may have been updated after the patient was seen, as this information can be updated by other users. Medical History Hyperlipidemia Hypertension Diabetes mellitus Surgical History Hx of cataract surgery Family History Grandmother Diabetes Father Heart attack Social History Smoking Status: Never smoker years smoked: 6 smoking status stop date: 10/16/1996 alcohol intake: never substance use type: denies use current occupational status: other details: farms Travel in the last 8 weeks: None household members: none housing: apartment lives independently: Yes Have you lived/traveled outside US in past 30 days?: No Contact w/someone who lives/traveled outside US past 30 days?: No Exposure to someone with infectious disease in past 14 days?: No Do you have a fever (greater than 100.4 F or 38 C)?: No Have you tested positive for COVID-19: No Exposed to someone with COVID-19 in past 14 days?: No Do you have a sore throat?: No Do you have a cough?: No Do you have any weakness?: No Do you have any diarrhea?: No Are you experiencing any unusual bleeding?: No Do you have any muscle aches/pain?: No Do you have any abdominal pain?: No Are you experiencing loss of taste or smell?: No Other Medical History Have you received the Pneumonia Vaccine: Yes ROS Obtained: Yes All systems reviewed & no additional complaints except as documented Physical Exam General General appearance: alert and in no apparent distress ENT ENT exam: Present normal exam and TM's normal bilaterally Respiratory Respiratory exam: Present normal lung sounds bilaterally; Absent respiratory distress Cardiovascular Cardiovascular exam: Present regular rate and normal rhythm Neurological Exam Neurological exam: Present alert, oriented X3, CN II-XII intact, normal gait and other (Finger-nose [id number] bilaterally normal gait normal); Absent motor sensory deficit Medical Decision Making Medical Records Screening: Per USPSTF and CDC recommendations, given the prevalence of disease in our region, it is our hospital?s policy to screen for HIV and viral Hepatitis for all patients aged 18 and over and those with ongoing risk factors. Karan Inquiry Pt receiving controlled substance: No Vital Signs: 01/04/25 07:40 Temperature 98.0 F Temperature Source Oral Pulse Rate [Left Radial] 67 Respiratory Rate 14 Blood Pressure [Left Arm] 142/64 H Blood Pressure Mean [Left Arm] 90 Blood Pressure Source [Left Arm] Automatic Cuff Blood Pressure Position [Left Arm] Sitting 02 Sat by Pulse Oximetry 97 Oxygen Delivery Method Room Air ECG Data Tracing #1: I reviewed this ECG and interpreted as documented below: Ventricular of 66 normal sinus rhythm no acute ischemic changes noted there is normal axis no conduction abnormalities noted Medical Decision Narrative: 64-year-old male presenting today with feelings of being dizzy headed. However those symptoms are very short-lived and he is completely asymptomatic at the moment. He has a normal posterior circulation exam. Otherwise his neurologic exam is normal and nonfocal. He had no other risk factors from a history standpoint to suggest that he has electrolyte abnormalities etc. EKG was unremarkable. At his age with dizziness and/or vertigo with any ongoing symptoms or other concerning symptoms from historical standpoint I typically have a very low threshold to get neuroimaging including angiography of the head and neck in addition to blood work. However I told the patient that his symptoms were very vague short-lived not consistent with posterior circulation stroke and he has normal neurologic exam at the moment. I did offer imaging and lab test but discussed with him that they would likely have a very low yield. He is very comfortable not obtaining these tests as this his sister is with him. He assures me he will return with any recurrence of his symptoms. He has been compliant with his aspirin and Plavix. 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 Very low yield for emergent imaging or lab test at the moment. Patient was discharged in stable and asymptomatic condition with advised to return with any recurrence or persistence of symptoms. Critical Care Critical Care Time Critical Care Time: No
== END 2025-01-04 08:03 | disposition home or self-care (01) ==
PROVIDERS: Emergency Provider Student in an Organized Health Care Education/Training Program; PCP Family Medicine
DX: R42 Dizziness and giddiness (principal); H93.19 Tinnitus, unspecified ear; M25.861 Other specified joint disorders, right knee; I65.29 Occlusion and stenosis of unspecified carotid artery; E78.5 Hyperlipidemia, unspecified; I10 Essential (primary) hypertension; Z87.891 Personal history of nicotine dependence; E11.9 Type 2 diabetes mellitus without complications; Z86.73 Personal history of transient ischemic attack (TIA), and cerebral infarction without residual deficits; Z88.0 Allergy status to penicillin; Z98.49 Cataract extraction status, unspecified eye; Z79.82 Long term (current) use of aspirin; Z79.02 Long term (current) use of antithrombotics/antiplatelets; Z79.899 Other long term (current) drug therapy; Z83.3 Family history of diabetes mellitus; Z82.49 Family history of ischemic heart disease and other diseases of the circulatory system
CPT/HCPCS: 93005; 99283

== ENCOUNTER 2025-06-18 09:35 | Outpatient (CLI) | payer MEDICAID, SELFPAY ==
[2025-06-18 19:51] LABS: Hematocrit 42.6 % (42.0-52.0); Hemoglobin 13.0 g/dL (14.1-18.0); Immature Granulocytes % 1.9 %; Mean Corpuscular HGB Conc 30.5 g/dL (31.8-35.4); Mean Corpuscular Hemoglobin 28.0 pg (27.0-31.2); Mean Corpuscular Volume 91.8 fl (80-94); Nucleated Red Blood Cells % 0 %; Platelet Count 212 K/mm3 (142-424); Red Blood Count 4.64 M/mm3 (4.60-6.20); Red Cell Distribution Width-SD 44.8 fL; White Blood Count 8.4 K/mm3 (4.8-10.8)
[2025-06-18 20:31] LABS: Albumin Level 4.3 g/dl (3.5-5.0)
[2025-06-18 20:32] LABS: Chloride 105 mmol/L (98-107); Potassium 4.2 mmoL/L (3.5-5.1); Sodium 138 mmol/L (136-145)
[2025-06-18 20:34] LABS: Alanine Aminotransferase 21 U/L (12-78); Anion Gap 13.2 mEq/L (5-15); Aspartate Amino Transferase 26 U/L (17-59); Blood Urea Nitrogen 16 mg/dl (9-20); Carbon Dioxide 24 mmol/L (22.0-30.0); Creatinine,Serum 1.10 mg/dl (0.66-1.25); Estimated Glomerular Filt Rate 67 ml/min (>60); GFR (African American) 82 ML/MIN (>60)
[2025-06-18 20:35] LABS: Albumin/Globulin Ratio 1.7 (1.1-1.8); Alkaline Phosphatase 73 U/L (38-126); Bilirubin,Total 1.3 mg/dl (0.2-1.3); Calcium 9.0 mg/dl (8.4-10.2); Cholesterol 108 mg/dl (140-200); Globulin 2.5 g/dL (1.3-3.2); Glucose 82 mg/dl (74-100); HDL Cholesterol 27 mg/dl (40-60); Total Protein,Serum 6.8 g/dl (6.3-8.2); Triglycerides 123 mg/dl (30-150)
[2025-06-18 21:04] LABS: Thyroid Stimulating Hormone 2.99 uIU/mL (0.465-4.68)
[2025-06-18 21:23] LABS: Hepatitis C Ab Qual. W/ RFX NEGATIVE (Negative)
--- OUTSIDE RECORDS SUMMARY | 2025-06-20 08:41 | XMS_ITS | Clinical Summary ---
[facility] [address] [place] [address] Care Team Providers Care Form Setter Steel Forms Name Role Phone Jhon Jasso MD Primary Care Provider [phone]- [phone] Allergies Active Allergy Reactions Criticality Noted Date Comments Penicillins Rash Low 07/18/2023 Medications spironolactone (ALDACTONE) 25 MG tablet Take 1 tablet by mouth Daily. Active vitamin D (ERGOCALCIFEROL ) 1.25 MG (65198 UT) capsule capsule Take 1 capsule by mouth 1 (One) Time Per Week. Active atorvastatin (LIPITOR) 80 MG tablet Take 1 tablet by mouth Every Night. 90 tablet 2 3 Active clopidogrel (PLAVIX) 75 MG tablet Take 1 tablet by mouth Daily. 30 tablet 2 3 Active lisinopril (PRINIVIL,ZESTR IL) 40 MG tablet 1 tablet. 3 Active metoprolol tartrate (LOPRESSOR) 50 MG tablet Take 2 tablets by mouth 2 (Two) Times a Day. 3 Active Insulin Glargine, 2 Unit Dial, (Toujeo Max SoloStar) 300 UNIT/ML solution pen-injector injection Inject 110 Units under the skin into the appropriate area as directed Daily. Active Aspirin Low Dose 81 MG EC tablet TAKE 1 TABLET 1 TIME EACH DAY 4 Active cetirizine-pseu doephedrine (ZyrTEC-D) 5-120 MG per 12 hr tablet Take 1 tablet by mouth Every 12 (Twelve) Hours. 5 Active FREESTYLE LITE test strip USE TO TEST BLOOD SUGAR 2 TIMES EACH DAY 5 Active B-D UF III MINI PEN NEEDLES 31G X 5 MM misc USE TO INJECT INSULIN 1 TIME EACH DAY 5 Active Lancets (freestyle) lancets USE TO TEST BLOOD SUGAR 2 TIMES EACH DAY 5 Active Active Problems Problem Noted Date Diagnosed Date Left sided numbness 07/25/2023 CVA (cerebral vascular accident) 07/18/2023 Diabetes mellitus 07/18/2023 Hyperlipidemia 07/18/2023 Assessment & Plan (08/08/2024 7:53 PM EDT): Goal LDL less than 70. No lipids to review today. He is on high intensity statin which is good. Request labs from PCP. Hypertension 07/18/2023 Assessment & Plan (08/08/2024 7:53 PM EDT): Hypertension is stable and controlled Continue current treatment regimen. Blood pressure will be reassessed in 6 months. Family History Medical History Relation Name Comments Heart disease Brother 1 Diabetes Brother 2 Heart disease Brother 2 Heart failure Brother 2 Hyperlipidemia Brother 2 Hypertension Brother 2 Heart attack Father Heart disease Father No Known Problems Mother Heart attack Sister 1 Heart disease Sister 1 Hyperlipidemia Sister 1 Hypertension Sister 1 Diabetes Sister 2 Heart disease Sister 2 Hyperlipidemia Sister 2 Hypertension Sister 2 Diabetes Sister 3 Hyperlipidemia Sister 3 Hypertension Sister 3 Diabetes Sister 4 Hyperlipidemia Sister 4 Hypertension Sister 4 Relation Name Status Comments Brother 1 Alive Brother 2 Father Mother Sister 1 Alive Sister 2 Alive Sister 3 Alive Sister 4 Alive Social History Tobacco Use Types Packs/Day Years Used Date Smoking Tobacco: Former Cigarettes 2 10 1 989 - 1998 Passive Smoke Exposure: Never Smokeless Tobacco: Never Tobacco Cessation:Counseling Given: Yes Alcohol Use Standard Drinks/Week Comments Never 0 (1 standard drink = 0.6 oz pur e alcohol) AUDIT-C Answer Date Recorded Q1: How often do you have a drink containing alcohol? Never 07/25/2023 Q2: How many drinks containi ng alcohol do you have on a typical day when you are drinking? Patient does not drink 3 Q3: How often do you have si x or more drinks on one occasion? Never 07/25/2023 Overall Financial Resource Strain (CARDIA) Answe r Date Recorded How hard is it for you to pa y for the very basics like food, housing, medical care, and heating? Not hard at all 07/20/2023 PHQ-2 Answer Date Recorded Retired PHQ-9: Brief Depression Severity Measure Score 0 07/20/2023 Exercise Vital Sign Answer Date Recorde d On average, how many days pe r week do you engage in moderate to strenuous exercise (like a brisk walk)? 7 days 07/20/2023 On average, how many minutes do you engage in exercise at this level? 120 min 07/20/2023 Hunger Vital Sign Answer Date Recorded Within the past 12 months, y ou worried that your food would run out before you got the money to buy more. Never true 07/20/20 23 Within the past 12 months, t he food you bought just didn't last and you didn't have money to get more. Never true 07/20/2023 PRAPARE - Transportation Answer Date Re corded In the past 12 months, has l ack of transportation kept you from medical appointments or from getting medications? No 02/2023 In the past 12 months, has l ack of transportation kept you from meetings, work, or from getting things needed for daily living? No 07/20/2023 Abuse Screen Answer Date Recorded Feels Unsafe at Home or Work/School no 07/25/2023 Feels Threatened by Someone no 07/16 Does Anyone Try to Keep You From Having Contact with Others or Doing Things Outside Your Home? no 07/25/2023 Physical Signs of Abuse Present no 07/25/2023 Housing Stability Answer Date Recorded Current Living Arrangements apartment 07/16 Potentially Unsafe Housing Conditions Not on serg e 07/25/2023 Family and Community Support Answer Víctor e Recorded If for any reason you need h elp with day-to-day activities such as bathing, preparing meals, shopping, managing finances, etc., do you get the help you need? I don't need any help 07/20/2023 How often do you feel lonely or isolated from those around you? Never 07/20/2023 Employment Answer Date Recorded Do you want help finding or keeping work or a job? I do not need or want help 07/20/2023 Disabilities Answer Date Recorded Difficulty Concentrating, Remembering or Making Decisions no 07/25/2023 Difficulty Managing Errands Independently no 07/25/2023 Education Answer Date Recorded Do you want help with school or training? For example, starting or completing job training or getting a high school diploma, GED or equivalent No 07/20/2023 Preferred Language Polish 07/20/2023 PHQ-2 Answer Date Recorded Retired PHQ-9: Brief Depression Severity Measure Score 0 10/18/2023 Sex and Gender Information Value Date Recorded Sex Assigned at Not on file Legal Sex Male 9:29 PM EDT Gender Identity Not on file Sexual Orientation Not on file Last Filed Vital Signs Vital Sign Reading Time Taken Comments Blood Pressure 120/62 02/03/2025 12:37 PM EDT Pulse 69 02/03/2025 12:37 PM EDT Temperature 36.3 C (97.3 F) 11/22/2023 12:17 PM EST Respiratory Rate 18 10/25/2023 2:41 PM EST Oxygen Saturation 93% 02/03/2025 12:37 PM EDT Inhaled Oxygen Concentration - - Weight 99.3 kg (219 lb) 02/03/2025 12:37 PM EDT Height 170.2 cm (5' 7 ) 02/03/2025 12:37 PM EDT Body Mass Index 34.3 02/03/2025 12:37 PM EDT Plan of Treatment Upcoming Encounters Date Type Department Care Team (Late st Contact Info) Description 08/04/2025 12:30 PM EDT Ancillary Procedure [facility] [address] [id number] 08/04/2025 1:30 PM EDT Office Visit [facility] [address] [id number] Liza Ricardo MD [address] [address] Health Maintenance Due Date Last Done Comments DIABETIC EYE EXAM 1971 DIABETIC FOOT EXAM 1971 URINE MICROALBUMIN-CREATININE RATIO (uACR) 1971 Pneumococcal Vaccine 50+ (1 of 2 - PCV) 1980 TDAP/TD VACCINES (1 - Tdap) 1980 COLOGUARD 2006 COLON CANCER SCREENING 5 YEAR SIGMOIDOSCOPY 2006 COLONOSCOPY [address] CANCER SCREENING 2006 CT COLONOGRAPHY 2006 FECAL OCCULT BLOOD TEST 2006 FIT Testing (1 year) 2006 ZOSTER VACCINE (1 of 2) 2011 ANNUAL PHYSICAL 07/21/2023 HEPATITIS C SCREENING 07/21/2023 HEMOGLOBIN A1C 01/18/2024 07/19/2023 COVID-19 Vaccine ( season) 2024 LIPID PANEL 07/19/2024 07/19/2023 INFLUENZA VACCINE 07/16/2025 Procedures Procedure Name Priority Date/Time Associated Diagnosis Comments HEMOGLOBIN A1C Routine 07/19/2023 6:42 AM EDT LIPID PANEL Routine 07/19/2023 6:42 AM EDT from Last 3 Months or Most Recently Relevant to Health Maintenance Results * (ABNORMAL) Hemoglobin A1c (07/19/2023 6:42 AM EDT) Hemoglobin A1C 8.20(H) 4.80 - 5.60 % 07/19/2023 11:15 AM EDT [facility] Blood Venipuncture / Unknown 07/19/2023 6:42 AM EDT 07/19/2023 6:51 AM EDT Narrative [facility] - 07/19/2023 11:15 AM EDT Hemoglobin A1C Ranges: Increased Risk for Diabetes 5.7% to 6.4% Diabetes >= 6.5% Diabetic Goal < 7.0% us James Tao APRN LAB BLOOD ORDERABLES Final Re sult [facility]
[address] [place] [address], * (ABNORMAL) Lipid Panel (07/19/2023 6:42 AM EDT) Total Cholesterol 127 0 - 200 mg/dL 07/19/2023 8:36 AM EDT [facility] Triglycerides 147 0 - 150 mg/dL 07/19/2023 8:36 AM EDT [facility] HDL Cholesterol 30(L) 40 - 60 mg/dL 07/19/2023 8:36 AM EDT [facility] LDL Cholesterol 71 0 - 100 mg/dL 07/19/2023 8:36 AM EDT [facility] VLDL Cholesterol 26 5 - 40 mg/dL 07/19/2023 8:36 AM EDT [facility] LDL/HDL Ratio 2.25 07/19/2023 8:36 AM EDT [facility] Blood Venipuncture / Unknown 07/19/2023 6:42 AM EDT 07/19/2023 6:52 AM EDT Narrative [facility] - 07/19/2023 8:36 AM EDT Cholesterol Reference Ranges (U.S. Department of Health and Human Services ATP III Classifications) Desirable <200 mg/dL Borderline High 200-239 mg/dL High Risk >240 mg/dL Triglyceride Reference Ranges (U.S. Department of Health and Human Services ATP III Classifications) Normal <150 mg/dL Borderline High 150-199 mg/dL High 200-499 mg/dL Very High >500 mg/dL HDL Reference Ranges (U.S. Department of Health and Human Services ATP III Classifications) Low <40 mg/dl (major risk factor for CHD) High >60 mg/dl ('negative' risk factor for CHD) LDL Reference Ranges (U.S. Department of Health and Human Services ATP III Classifications) Optimal <100 mg/dL Near Optimal 100-129 mg/dL Borderline High 130-159 mg/dL High 160-189 mg/dL Very High >189 mg/dL us James Tao FILLING MACHINE OPERATOR LAB BLOOD ORDERABLES Final Re sult [facility]
[address] [place] [address], from Last 3 Months or Most Recently Relevant to Health Maintenance Insurance [employer] [place] Advance Directives Documents on File Type Date Recorded Patient Funeral Arrangement Director Expl anation LIVING WILL - SCAN 07/21/2023 1:20 PM CHYNA NG WILL, BHLEX, 07/21/2023 * CPR (Attempt to Resuscitate) (Latest Code Status on File) Date Activated Date Inactivated Comments 07/25/2023 10:23 PM 07/26/2023 6:06 PM Question Answer Comments Code Status (Patient has no pulse and is not breathing): CPR (Attempt to Resuscitate) Medical Interventions (Patie nt has pulse or is breathing): Full Support * CPR (Attempt to Resuscitate) Date Activated Date Inactivated Comments 07/18/2023 11:51 PM 07/21/2023 4:50 PM Question Answer Comments Code Status (Patient has no pulse and is not breathing): CPR (Attempt to Resuscitate) Medical Interventions (Patie nt has pulse or is breathing): Full Support Healthcare Agents on File Name Relationship Healthcare Agent Relationshi p Communication Sharri Vega Sister Health Care Surrogate Ledy Mendoza [facility] Health Care Surrogate Care Teams Form Setter Steel Forms Relationship Specialty Start Date End Date Jhon Jasso MD [address] [place] [address] [facility] [address] PCP - General Family Medicine 07/19/23
[2025-06-20 09:14] LABS: Hepatitis B Surface Antigen Negative (Negative)
== END 2025-06-18 23:59 ==
LOC: LAB.DROPOF 06-20 08:27
PROVIDERS: PCP Family Medicine; Visit Provider Family Medicine
DX: E78.5 Hyperlipidemia, unspecified (principal); I10 Essential (primary) hypertension; E11.9 Type 2 diabetes mellitus without complications; Z11.4 Encounter for screening for human immunodeficiency virus [HIV]; Z11.59 Encounter for screening for other viral diseases
CPT/HCPCS: 80053; 80061; 84443; 85025; 86803; 87340; 87389

== ENCOUNTER 2025-06-19 09:59 | Outpatient (CLI) | payer MEDICAID, SELFPAY ==
[2025-06-19 21:27] LABS: Hemoglobin A1C 9.6 % (4.0-6.0)
--- OUTSIDE RECORDS SUMMARY | 2025-06-24 10:06 | XMS_ITS | Clinical Summary ---
[facility] Address [address] [place] [address] Care Team Providers Care Floor Steward/Stewardess Name Role Phone Jhon Jasso MD Primary Care Provider +1- [phone] Allergies Active Allergy Reactions Criticality Noted Date Comments Penicillins Rash Low 07/18/2023 Medications spironolactone (ALDACTONE) 25 MG tablet Take 1 tablet by mouth Daily. Active vitamin D (ERGOCALCIFEROL ) 1.25 MG (57086 UT) capsule capsule Take 1 capsule by [...] GED or equivalent No 07/20/2023 Preferred Language Azeri 07/20/2023 PHQ-2 Answer Date Recorded Retired PHQ-9: [...] Description 08/04/2025 12:30 PM EDT Ancillary Procedure [facility] [address] [id number] 08/04/2025 1:30 PM EDT Office Visit [facility] [address] [...] C SCREENING 07/21/2023 HEMOGLOBIN A1C 01/18/2024 07/19/2023 LIPID PANEL 07/19/2024 07/19/2023 COVID-19 Vaccine ( - season) 2025 INFLUENZA VACCINE 07/16/2025 Procedures Procedure Name Priority Date/Time Associated Diagnosis Comments SCANNED - LABS 06/18/2025 HEMOGLOBIN A1C Routine 07/19/2023 6:42 AM EDT LIPID PANEL Routine 07/19/2023 6:42 AM EDT from Last 3 Months or Most Recently Relevant to Health Maintenance Results * LABS SCANNED (06/18/2025) us Liza Ricardo MD LAB BLOOD ORDERABLES Final R esult * (ABNORMAL) Hemoglobin A1c (07/19/2023 6:42 AM EDT) Hemoglobin A1C 8.20(H) 4.80 - 5.60 % 07/19/2023 11:15 AM EDT [facility] Blood Venipuncture / Unknown 07/19/2023 6:42 AM EDT 07/19/2023 6:51 AM EDT Narrative [facility] - 07/19/2023 11:15 AM EDT Hemoglobin A1C Ranges: Increased Risk for Diabetes 5.7% to 6.4% Diabetes >= 6.5% Diabetic Goal < 7.0% us James Tao GL ACCOUNTANT LAB BLOOD ORDERABLES Final Re sult [facility]
[address] [place] [address], * (ABNORMAL) Lipid Panel (07/19/2023 6:42 AM EDT) Total Cholesterol 127 0 - 200 mg/dL 07/19/2023 8:36 AM EDT [facility] Triglycerides 147 0 - 150 mg/dL 07/19/2023 8:36 AM EDT [facility] HDL Cholesterol 30(L) 40 - 60 mg/dL 07/19/2023 8:36 AM EDT [facility] LDL Cholesterol 71 0 - 100 mg/dL 07/19/2023 8:36 AM EDT [facility] VLDL Cholesterol 26 5 - 40 mg/dL 07/19/2023 8:36 AM EDT [facility] LDL/HDL Ratio 2.25 07/19/2023 8:36 AM EDT [facility] Blood Venipuncture / Unknown 07/19/2023 6:42 AM EDT 07/19/2023 6:52 AM EDT Narrative [facility] - 07/19/2023 8:36 AM EDT Cholesterol [...] Very High >189 mg/dL us James Tao GL ACCOUNTANT LAB BLOOD ORDERABLES Final Re sult [facility]
[address] [place] [address], [place] [phone] from Last 3 Months or Most Recently Relevant to Health Maintenance Insurance [employer] [place] Advance Directives Documents on File Type Date Recorded Patient Clinical Tech Expl anation LIVING WILL - SCAN 07/21/2023 1:20 PM PREM COLÓN, 07/21/2023 * CPR (Attempt to Resuscitate) (Latest [...] Healthcare Agent Relationshi p Communication Sharri Vega [facility] Health Care Surrogate Ledy Lux [facility] Health Care Surrogate Care Teams Floor Steward/Stewardess Relationship Specialty Start Date End Date Jhon Jasso MD [address] [place] [address] PCP - General Family Medicine 07/19/23
== END 2025-06-19 23:59 ==
LOC: LAB.DROPOF 06-24 10:00
PROVIDERS: PCP Family Medicine; Visit Provider Family Medicine
DX: E11.9 Type 2 diabetes mellitus without complications (principal)
CPT/HCPCS: 83036